=== PATIENT | female | born 1965 | race Hispanic/Latino ===

== ENCOUNTER 2022-01-24 19:24 | Emergency (ER) | payer BC, OTHER ==
[~2022-01-24] VITALS: Ht 152.4 cm; Wt 112.5 kg
[2022-01-24] MEDS ORDERED: BENZONATATE200 MG PO (20:17)
== END 2022-01-24 20:37 | disposition home or self-care (01) ==
LOC: FSED 19:31
DX: R05.9 Cough, unspecified (principal); U07.1 COVID-19; I10 Essential (primary) hypertension; E11.9 Type 2 diabetes mellitus without complications
CPT/HCPCS: 99282